=== PATIENT | male | born 2000 | race Caucasian/White ===

== ENCOUNTER → 2020-02-08 12:14 | Outpatient (BNVA) | payer MEDICAID, SELFPAY | PROVIDERS: Family Provider Nurse Practitioner Family; PCP Family Medicine; Visit Provider Family Medicine | DX: Z00.00 Encounter for general adult medical examination without abnormal findings (principal); M79.671 Pain in right foot | CPT/HCPCS: 73630; 80053; 80061; 84443; 85025 ==

== ENCOUNTER → 2020-02-22 14:00 | Outpatient (BNVA) | payer MEDICAID, SELFPAY | PROVIDERS: Family Provider Nurse Practitioner Family; PCP Family Medicine; Visit Provider Family Medicine | DX: E87.1 Hypo-osmolality and hyponatremia (principal) | CPT/HCPCS: 80048 ==

== ENCOUNTER → 2020-03-09 12:01 | Outpatient (BNVA) | payer MEDICAID, SELFPAY | PROVIDERS: Family Provider Nurse Practitioner Family; PCP Family Medicine; Visit Provider Family Medicine | DX: E87.1 Hypo-osmolality and hyponatremia (principal) | CPT/HCPCS: 80053 ==

== ENCOUNTER 2020-03-26 21:43 | Emergency (ER) | payer MEDICAID, SELFPAY ==
[2020-03-26 21:44] VITALS: BP 142/87; PULSE 91; RESP 18; O2SAT 98
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
--- NOTE | 2020-03-26 21:59 | ECG_ITS ---
[facility] Test Date: 2020-03-26 Pat Name: Detnon Ventura Department: Room: Gender: Male Kitchen Operator: : [id number] Requested By: Charlotte Willis Order Number: [id number] Zenaida MD: Nelda Mitchell M.D. Measurements Intervals [place] Rate: 83 P: 25 KS: 143 QRS: 19 QRSD: 96 T: 46 QT: 357 QTc: 420 Interpretive Statements SINUS RHYTHM Incomplete right bundle branch block Nonspecific T wave changes Compared to ECG 05/02/2015 20:09:45 Sinus bradycardia no longer present Electronically Signed On 03-28-2020 0:04:30 CDT by Nelda Mitchell M.D. [id number]
[2020-03-26 22:29] LABS: Basophils % 0.5 %; Eosinophils # 0.2 10^3/uL (0.0-0.8); Eosinophils % 2.2 %; Hematocrit 36.4 % (42.0-52.0); Lymphocytes # 2.3 10^3/uL (1.5-6.5); Lymphocytes % 29.3 %; Mean Corpuscular Hemoglobin 30.5 pg (28.0-34.0); Mean Corpuscular Volume 92.4 fL (80-94); Mean Platelet Volume 8.9 fL (7.4-10.4); Monocytes % 12.2 %; Neutrophils % 51.7 %; Nucleated Red Blood Cells % 0 %; Platelet Count 288 10^3/cmm (130-400); Red Blood Count 3.94 10^6/uL (4.1-5.3); White Blood Count 7.8 10^3/uL (4.5-13.0)
[2020-03-26 23:06] LABS: Alanine Aminotransferase 24 U/L (0-41); Albumin Level 4.2 g/dL (3.5-5.2); Alkaline Phosphatase 87 IU/L (40-130); Anion Gap 16.1 (5-19); Aspartate Amino Transferase 24 U/L (0-40); Blood Urea Nitrogen 9 mg/dL (6-20); Calcium 9.6 mg/dL (8.5-10.5); Carbon Dioxide 30 mmol/L (22-29); Chloride 88 mmol/L (98-107); Globulin 2.6 g/dL (1.3-4.6); Glomerular Filtration Rate 277.1 mL/min (90-130); Glucose 111 mg/dL (65-115); Osmolality Calculated 267 mOsm/kg (285-295); Potassium 4.1 mmol/L (3.5-5.1); Sodium 130 mmol/L (136-145); Total Bilirubin 0.2 mg/dL (0.15-1.2); Total Protein 6.8 g/dL (6.6-8.7)
[2020-03-26 23:07] LABS: Acetaminophen < 5.0 ug/mL (10-30); Alcohol Level < 10 mg/dL (0-10); Salicylate < 0.3 mg/dL (3-10)
[2020-03-27] MEDS: haloperidol inj 5 mg/mL INJ 1 mL 10 MG IM (00:43)
[2020-03-27] MEDS: LORazepam 2 mg/mL INJ 1 mL IM (00:43)
[2020-03-27 02:01] LABS: Amphetamines Screen Urine Negative (Negative); Barbiturates Screen Urine Negative (Negative); Benzodiazepines Screen Urine Negative (Negative); Cocaine Screen Urine Negative (Negative); Opiate Screen Urine Negative (Negative); PCP Screen Urine Negative (Negative); THC Screen Urine Negative (Negative)
[2020-03-27 07:51] VITALS: BP 116/73; PULSE 79; RESP 18; O2SAT 100
--- NOTE | 2020-03-27 09:34 | PC.NURSE ---
Patient food tray delivered
[2020-03-27] MEDS: LORazepam 2 mg/mL INJ 1 mL 1 MG IM ×2 (10:23→11:07)
[2020-03-27] MEDS: haloperidol inj 5 mg/mL INJ 1 mL IM (11:45)
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
[2020-03-27 14:45] VITALS: BP 125/73; PULSE 84; RESP 20
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
--- NOTE | 2020-03-27 15:03 | ED_ITS ---
HPI - Psych General: Chief Complaint: Psychiatric Symptoms Stated Complaint: MHE Time Seen by Provider: 03/26/20 21:44 Source: patient Mode of arrival: EMS [facility] ED PFSH: Medical History (Updated 03/27/20 @ 15:20 by Candelario Ge DO) ADHD Mental disability Prader-Willi syndrome Social History Smoking and tobacco status: never smoked Alcohol intake: never Housing: Assisted Living Facility MDM - Psych MDM Narrative: Medical decision making narrative: Psychiatry was consulted in the emergency room. Dr. Levy has seen the patient. He feels this is not a psychiatric issue that the patient is acting out on behavior in large part due to his low IQ. He does not feel that psychiatric admission would be helpful and recommends the patient be discharged and that he be relocated to care setting more appropriate for his needs. Please see his consultation note. Lab Data: Labs: Lab Results 03/26/20 03/26/20 03/27/20 Range/Units 22:14 22:14 01:27 WBC 7.8 (4.5-13.0) 10^3/ uL RBC 3.94 L (4.1-5.3) 10^6/u L Hgb 12.0 (11.7-16.6) g/dL Hct 36.4 L (42.0-52.0) % MCV 92.4 (80-94) fL MCH 30.5 (28.0-34.0) pg MCHC 33.0 (30.0-36.0) g/dL RDW 12.0 L (12.1-15.1) % Plt Count 288 (130-400) 10^3/c mm MPV 8.9 (7.4-10.4) fL Neut % (Auto) 51.7 % Lymph % (Auto) 29.3 % [place] % (Auto) 12.2 % Eos % (Auto) 2.2 % Baso % (Auto) 0.5 % Neut # (Auto) 4.0 (1.8-8.0) 10^3/u L Lymph # (Auto) 2.3 (1.5-6.5) 10^3/u L [place] # (Auto) 1.0 H (0.2-0.9) 10^3/u L Eos # (Auto) 0.2 (0.0-0.8) 10^3/u L Baso # (Auto) 0.0 (0.0-0.1) 10^3/u L Nucleated RBC % (a uto) 0 % Nucleated RBCs # 0.0 /100WBC Sodium 130 L (136-145) mmol/L Potassium 4.1 (3.5-5.1) mmol/L Chloride 88 L (98-107) mmol/L Carbon Dioxide 30 H (22-29) mmol/L Anion Gap 16.1 (5-19) BUN 9 (6-20) mg/dL Creatinine 0.4 L (0.7-1.2) mg/dL GFR Calculation 277.1 H (90-130) mL/min Glucose 111 (65-115) mg/dL Calculated Osmolal ity 267 L (285-295) mOsm/k g Calcium 9.6 (8.5-10.5) mg/dL Total Bilirubin 0.2 (0.15-1.2) mg/dL AST 24 (0-40) U/L ALT 24 (0-41) U/L Alkaline Phosphata se 87 (40-130) IU/L Total Protein 6.8 (6.6-8.7) g/dL Albumin 4.2 (3.5-5.2) g/dL Globulin 2.6 (1.3-4.6) g/dL TSH 8.50 H (0.27-4.20) uIU/ mL Salicylates < 0.3 L (3-10) mg/dL Urine Opiates Scre en Negative (Negative) ng/mL Acetaminophen < 5.0 L (10-30) ug/mL Ur Barbiturates Sc reen Negative (Negative) ng/mL Ur Phencyclidine S crn Negative (Negative) ng/mL Ur Amphetamines Sc reen Negative (Negative) ng/mL U Benzodiazepines Scrn Negative (Negative) ng/mL Urine Cocaine Scre en Negative (Negative) ng/mL U Marijuana (THC) Screen Negative (Negative) ng/mL Ethyl Alcohol < 10 (0-10) mg/dL Discharge Plan Discharge Patient Disposition: Home, Self-Care Clinical Impression: Mental disability, Prader-Willi syndrome, Behavioral problem Condition: Stable Prescriptions: No Action Depakote 250 mg Tablet,Delayed Release (Dr/Ec) 250 mg PO BID RF: 0 Depakote 500 mg Tablet,Delayed Release (Dr/Ec) 500 mg PO BEDTIME RF: 0 carbamazepine 200 mg Tablet 200 mg PO BID RF: 0 trazodone 150 mg Tablet 150 mg PO BEDTIME RF: 0 chlorpromazine 25 mg Tablet 25 mg PO Q4H PRN (Reason: Anxiety) RF: 0 guanfacine 1 mg Tablet 1 mg PO TID RF: 0 Prozac 10 mg Capsule 10 mg PO DAILY RF: 0 Risperdal 1 mg Tablet 1 mg PO BID RF: 0 Vitamin D3 25 mcg (1,000 unit) Capsule 25 mcg PO DAILY RF: 0 omeprazole 20 mg Tablet,Delayed Release (Dr/Ec) 20 mg PO DAILY RF: 0 Invega Sustenna 234 mg/1.5 mL Syringe 234 mg IM Q30D RF: 0 28 mg iron- 800 mcg Tablet 1 tab PO DAILY RF: 0 risperidone 0.25 mg Tablet 0.25 mg PO TID RF: 0 Activity Restrictions/Additional Instructions: Recommend patient be placed in a different care setting more appropriate for his needs. No change in current medications. Discharge Date/Time: 03/27/20 16:59 Coding Level of Care Code ED Waterproof Bag Cutting Machine Operator for [place] Vasquez
== END 2020-03-27 16:59 | disposition home or self-care (01) ==
PROVIDERS: Physician Assistant; Emergency Provider Family Medicine
DX: Q87.11 Prader-Willi syndrome (principal); R46.89 Other symptoms and signs involving appearance and behavior; F79 Unspecified intellectual disabilities
CPT/HCPCS: 12345; 36415; 80053; 80306; 80307; 84443; 85025; 93005; 96372; 99284; J1630; J2060

== ENCOUNTER 2020-03-28 14:09 | Emergency (ER) | payer MEDICAID, SELFPAY ==
[2020-03-28 14:19] VITALS: BP 131/87; PULSE 102; RESP 18; TEMP 36.4; O2SAT 97; BMI 24.4
--- NOTE | 2020-03-28 14:23 | XRR_ITS ---
PROCEDURE INFORMATION: Exam: XR Complete Acute Abdomen Series Exam date and time: 03/28/2020 2:55 PM Age: 19 years old Clinical indication: Other: Unknown; Patient HX: HX of prader-willi syndrome. PT not answering questions; Additional info: Foreign body ingestion TECHNIQUE: Imaging protocol: XR complete acute abdomen series, including 2 or more views of the abdomen and a single view chest. COMPARISON: [facility] Abdomen 1 view 10/27/2014 1:32 PM FINDINGS: Lungs: Normal. No consolidation. Pleural space: Normal. No pneumothorax. Heart/Mediastinum: Normal. No cardiomegaly. Gastrointestinal tract: No bowel dilation. Negative for radiodense foreign body There is moderate diffuse colonic fecal stasis Intraperitoneal space: Normal. No free air. Bones/joints: Dorsolumbar dextroscoliosis No acute fracture. Soft tissues: Normal. XR/XR acute abdomen series [id number] IMPRESSION: 1. No acute a cardiac or pulmonary disease. 2. Negative for acute GI abnormality 3. Dorsolumbar dextroscoliosis 4. Negative for radiodense GI tract foreign body
--- NOTE | 2020-03-28 14:29 | ED_ITS ---
HPI - Psych General: Chief Complaint: Psychiatric Symptoms Stated Complaint: 96 Time Seen by Provider: 03/28/20 14:16 Source: patient and police Mode of arrival: ambulatory History of Present Illness: HPI Narrative: [place] is a 19-year-old male with a history of Prader-Willi syndrome. He has been brought in on a 96-hour hold. Patient's complaint is of being hungry. He has no sign of hostility. There is been no reported homicidal or suicidal ideation. Patient has been reported to possibly put something metal in his mouth are concerned he may have swallowed it. Otherwise the patient has no complaints. Review of Systems General: Reports: Other (Patient will not cooperate to answer questions.) PFS ED PFSH: Medical History ADHD Mental disability Prader-Willi syndrome Social History Smoking and tobacco status: never smoked Alcohol intake: never Housing: Assisted Living Facility Physical Exam 2 Const: COMMON NORMALS: no acute distress, patient oriented x3, no limitations, healthy appearing and well nourished GENERAL APPEARANCE: cooperative, well kempt and well developed HENMT: COMMON NORMALS: normocephalic, atraumatic, external ears normal, EAC's normal and Normal external nose present HEAD & SCALP: normal to inspection, normocephalic and atraumatic FACE & SINUS: normal facial exam and face symmetric NOSE: Normal external nose present and Normal nares present EXTERNAL EAR: Yes external ears normal EXTERNAL AUDITORY CANAL: EAC's normal MOUTH: Normal oral and palatal mucosa present, lip normal and tongue normal Eye: COMMON NORMALS: Equal, round and reactive pupils present and conjunctivae normal GENERAL EYE: appearance normal, both eyes and all related structures ALIGNMENT: Yes alignment normal PERIORBITAL: periorbital findings normal EYELID: eyelids normal CONJUNCTIVA: Yes conjunctivae normal SCLERA: sclerae normal PUPIL: Yes Equal, round and reactive pupils present Neck/C-Spine: COMMON NORMALS: full ROM, no lymphadenopathy, supple, no meningeal signs and no JVD GENERAL: Yes normal visual inspection and Yes trachea midline Chest: COMMONS NORMALS: normal inspection of the chest and normal palpation of entire chest wall Resp: COMMON NORMALS: normal respiratory effort, No retractions and No use of accessory muscles EFFORT & INSPECTION: Yes able to speak in complete sentences and Yes symmetric chest movement AUSCULTATION: no crackles, no rales, no rhonchi and no wheezes Cardio: COMMON NORMALS: no JVD, regular rate, regular rhythm, S1 normal heart sound present and S2 normal heart sound present RATE: regular rate RHYTHM: regular rhythm HEART SOUNDS: S1 normal heart sound present, S2 normal heart sound present, no click, no gallops, no murmurs, no rubs and abnormal split S2 GI: COMMON NORMALS: Soft to palpation and No hepatosplenomegaly present PALPATION: Yes Soft to palpation, No Tenderness to palpation present (GI), No Guarding due to palpation present (GI), No Rigid due to palpation, Yes No hepatosplenomegaly present, No Hernia present, No Palpable mass present and No Pulsatile mass present : COMMON NORMALS: Yes no CVA tenderness BLADDER/KIDNEY EXAM: Yes no CVA tenderness Back/Pelvis: COMMON NORMALS: no CVA tenderness, thoracic and lumbar spine normal to inspection, no thoracic nor lumbar tenderness and thoraco-lumbar ROM normal Extremity: COMMON NORMALS: normal to inspection, full ROM, capillary refill normal, no joint enlargement, no clubbing, cyanosis or edema and no calf tenderness Neuro: COMMON NORMALS: patient oriented x3, CN's II-XII intact bilaterally, moves all extremities, no focal motor deficits and no sensory deficits noted MENINGEAL SIGNS: Yes no meningeal signs SPEECH: speech normal Psych: APPEARANCE: Yes well kempt Skin: COMMON NORMALS: no rashes or lesions noted, turgor normal, no jaundice, no petechiae and no mottling GENERAL SKIN EXAM: no rashes or lesions noted and turgor normal MDM - Psych Lab Data: Labs: Lab Results 03/28/20 03/28/20 Range/Units 14:33 14:33 Urine Color Yellow (Yellow) Urine Appearance Clear (CLEAR) Urine pH 8 H (5-7) Ur Specific Gravit y 1.010 (1.005-1.030) Urine Protein Neg (Negative) Urine Glucose (UA) Norm (Normal) Urine Ketones Negative (Negative) Urine Blood Neg (Negative) Urine Nitrate Negative (Negative) Urine Bilirubin Neg (NEGATIVE) Urine Urobilinogen Neg (Negative) mg/dL Ur Leukocyte Rayna ase Negative (Negative) Urine RBC None (0-2) /hpf Urine WBC None (0-5) /hpf Ur Squamous Epith Cells 0-4 H (0-5) Urine Bacteria None (NONE) Urine Opiates Scre en Negative (Negative) ng/mL Ur Barbiturates Sc reen Negative (Negative) ng/mL Ur Phencyclidine S crn Negative (Negative) ng/mL Ur Amphetamines Sc reen Negative (Negative) ng/mL U Benzodiazepines Scrn Positive H (Negative) ng/mL Urine Cocaine Scre en Negative (Negative) ng/mL U Marijuana (THC) Screen Negative (Negative) ng/mL Discharge Plan Discharge Patient Disposition: Home, Self-Care Clinical Impression: Prader-Willi syndrome Condition: Stable Prescriptions: No Action Depakote 250 mg Tablet,Delayed Release (Dr/Ec) 250 mg PO BID RF: 0 Depakote 500 mg Tablet,Delayed Release (Dr/Ec) 500 mg PO BEDTIME RF: 0 carbamazepine 200 mg Tablet 200 mg PO BID RF: 0 trazodone 150 mg Tablet 150 mg PO BEDTIME RF: 0 chlorpromazine 25 mg Tablet 25 mg PO Q4H PRN (Reason: Anxiety) RF: 0 guanfacine 1 mg Tablet 1 mg PO TID RF: 0 Prozac 10 mg Capsule 10 mg PO DAILY RF: 0 Risperdal 1 mg Tablet 1 mg PO BID RF: 0 Vitamin D3 25 mcg (1,000 unit) Capsule 25 mcg PO DAILY RF: 0 omeprazole 20 mg Tablet,Delayed Release (Dr/Ec) 20 mg PO DAILY RF: 0 Invega Sustenna 234 mg/1.5 mL Syringe 234 mg IM Q30D RF: 0 28 mg iron- 800 mcg Tablet 1 tab PO DAILY RF: 0 risperidone 0.25 mg Tablet 0.25 mg PO TID RF: 0 Discharge Diet: Usual diet Discharge Activity: Increase activity as tolerated Activity Restrictions/Additional Instructions: Please return to the ER immediately for any of the signs or symptoms listed on your discharge instruction sheets, worsening/changing of your symptoms, you are not getting better as quickly as expected, or for ANY other cause or concerns. Return to the ER if you have any thoughts of wanting to hurt yourself or others. Discharge Date/Time: 03/28/20 16:45 Coding Level of Care Code ED Payroll Accountant for [place] Fwd Exam Comprehensive
--- NOTE | 2020-03-28 14:43 | PC.NURSE ---
upon entering the room pt began attempting to tear items off the bed. Mattress put on floor. Bed taken out of room so pt cannot harm himself. Security present at bedside
[2020-03-28 15:02] LABS: Amphetamines Screen Urine Negative (Negative); Barbiturates Screen Urine Negative (Negative); Benzodiazepines Screen Urine Positive (Negative); Cocaine Screen Urine Negative (Negative); Opiate Screen Urine Negative (Negative); PCP Screen Urine Negative (Negative); THC Screen Urine Negative (Negative)
[2020-03-28 15:17] LABS: Bilirubin Urine Neg (NEGATIVE); Blood Urine Neg (Negative); Glucose Urine UA Norm (Normal); Ketones Urine Negative (Negative); Leukocyte Esterase Urine Negative (Negative); Nitrate Urine Negative (Negative); Protein Urine Neg (Negative); Urine Appearance Clear (CLEAR); Urine Color Yellow (Yellow); Urobilinogen Urine Neg (Negative); pH Urine 8 (5-7)
[2020-03-28 15:18] LABS: Add Urine Culture? No; Squamous Epithelial Cell Urine 0-4 (0-5)
--- NOTE | 2020-03-28 16:00 | PC.NURSE ---
pyschiatrist evaluates pt in room. pt continues to be resistive to care.
--- NOTE | 2020-03-28 16:45 | PC.NURSE ---
pt combative and uncooperative with staff. discharge vital signs not obtained.
== END 2020-03-28 16:45 | disposition home or self-care (01) ==
PROVIDERS: Emergency Provider Emergency Medicine
DX: Q87.11 Prader-Willi syndrome (principal)
CPT/HCPCS: 12345; 74022; 80306; 81001; 96374; 96375; 99284

== ENCOUNTER 2020-06-06 10:23 | Emergency (ER) | payer MEDICAID, SELFPAY ==
[2020-06-06 10:32] VITALS: BP 130/80; PULSE 84; RESP 16; TEMP 36.6; O2SAT 100; BMI 29.8
--- NOTE | 2020-06-06 10:57 | ED_ITS ---
HPI - Psych General: Chief Complaint: Psychiatric Symptoms Stated Complaint: ABRASIONS Time Seen by Provider: 06/06/20 10:26 History of Present Illness: HPI Narrative: He left his caregiver's house last night after supper and spent the night [place] the [place] and sleeping in an old house. Patient has scratch diaz and bites of insects on himself. Patient has a history of running away and is been in multiple facilities. Patient denies any homicidal suicidal ideation says he feels fine denies any depression MD complaint: other (Found in an abandoned house last night after leaving caregivers house.) Onset (ago): hour(s) Associated symptoms: Deny depression Review of Systems Const: Denies: fever(s), chills or body aches Eyes: Denies: change in vision or blurry vision ENMT: Denies: throat pain or nasal congestion Card: Denies: chest pain or dyspnea on exertion Resp: Denies: dyspnea, productive cough or non-productive cough GI: Denies: abdominal pain, nausea or vomiting : Denies: difficulty urinating Musc: Denies: extremity pain Skin/Breast: Reports: pruritus, erythema and other (Has multiple scratches and insect bites and poison dinorah contact from being in the [place] last night.); Denies: rash Neuro: Denies: headache(s) Psych: Denies: anxiety or depression Ralph/Lymph: Denies: easy bruising PFS ED PFSH: Medical History (Updated 04/04/20 @ 00:01 by ) ADHD Mental disability Prader-Willi syndrome Social History Smoking and tobacco status: never smoked Alcohol intake: never Housing: Assisted Living Facility Physical Exam Const: COMMON NORMALS: no acute distress, average body habitus and patient oriented x3 HENMT: COMMON NORMALS: normocephalic HEAD & SCALP: normal to inspection and normocephalic FACE & SINUS: normal facial exam Eye: COMMON NORMALS: conjunctivae normal GENERAL EYE: appearance normal, both eyes and all related structures CONJUNCTIVA: Yes conjunctivae normal Neck/C-Spine: COMMON NORMALS: no JVD Chest: COMMONS NORMALS: normal inspection of the chest Resp: COMMON NORMALS: normal respiratory effort and clear to auscultation bilaterally AUSCULTATION: clear to auscultation bilaterally Cardio: COMMON NORMALS: no JVD, regular rate and regular rhythm RATE: regular rate RHYTHM: regular rhythm GI: COMMON NORMALS: Normal to inspection, nondistended, normoactive bowel sounds present Extremity: COMMON NORMALS: normal to inspection and full ROM Neuro: COMMON NORMALS: patient oriented x3 Skin: NARRATIVE SKIN EXAM: Patient has multiple papules located on lower and upper extremities. They are consistent with insect bites. Also has linear scratches consistent with Gap scratches and contact with possible poison dinorah. Also has maculopapular rash in the lower extremities and upper extremities and face. Discharge Plan Discharge Condition: Stable Prescriptions: No Action Depakote 250 mg Tablet,Delayed Release (Dr/Ec) 250 mg PO BID RF: 0 Depakote 500 mg Tablet,Delayed Release (Dr/Ec) 500 mg PO BEDTIME RF: 0 carbamazepine 200 mg Tablet 200 mg PO BID RF: 0 trazodone 150 mg Tablet 150 mg PO BEDTIME RF: 0 chlorpromazine 25 mg Tablet 25 mg PO Q4H PRN (Reason: Anxiety) RF: 0 guanfacine 1 mg Tablet 1 mg PO TID RF: 0 Prozac 10 mg Capsule 10 mg PO DAILY RF: 0 Risperdal 1 mg Tablet 1 mg PO BID RF: 0 Vitamin D3 25 mcg (1,000 unit) Capsule 25 mcg PO DAILY RF: 0 omeprazole 20 mg Tablet,Delayed Release (Dr/Ec) 20 mg PO DAILY RF: 0 Invega Sustenna 234 mg/1.5 mL Syringe 234 mg IM Q30D RF: 0 28 mg iron- 800 mcg Tablet 1 tab PO DAILY RF: 0 risperidone 0.25 mg Tablet 0.25 mg PO TID RF: 0 Coding Level of Care Code ED 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
[2020-06-06] MEDS: cephALEXin 500 mg Capsule PO (11:29)
[2020-06-06] MEDS: predniSONE 10 mg Tablet PO (11:30)
== END 2020-06-06 11:57 | disposition home or self-care (01) ==
PROVIDERS: Emergency Provider Nurse Practitioner Family
DX: S80.862A Insect bite (nonvenomous), left lower leg, initial encounter (principal); S80.861A Insect bite (nonvenomous), right lower leg, initial encounter; S40.862A Insect bite (nonvenomous) of left upper arm, initial encounter; S40.861A Insect bite (nonvenomous) of right upper arm, initial encounter; W57.XXXA Bitten or stung by nonvenomous insect and other nonvenomous arthropods, initial encounter
CPT/HCPCS: 12345; 99284; J7512